=== PATIENT | female | born 1965 | race Caucasian/White ===

== ENCOUNTER 2018-08-30 09:00 | Outpatient (RCR) | payer MEDICARE, MEDICAID ==
--- NOTE | 2018-08-27 09:58 | NUR ---
0800 Patient came into office stating that she recieved good news yesterday from her doctor that her cancer has shrunk. Pt was very smiley. Pt states she will continue following up with her doctor.
[~2018-08-30 09:00] MED LIST: ALBUTEROL SUL0.083 % IN; ATIVAN0.5 MG PO; GABAPENTIN100 MG PO; GEODON60 MG PO; MULTIVITAMI9 PO; PROCHLORPER PO; PROZAC40 MG PO; REMERON15 MG PO; WELLBUTRIN SR150 MG PO
--- NOTE | 2018-09-10 11:02 | NUR ---
09/06/18 Patient's chart in for review by Treatment team. Pt has been compliant throughout her treatment in IOP. Pt has exceded benefit in insurance. Pt has been meeting her goals. Pt will be discharged today with goals met.
== END 2018-09-19 23:59 | disposition home or self-care (01) ==
LOC: PATHWAYS 09:00
PROVIDERS: ATTEND Specialist
DX: F25.8 Other schizoaffective disorders (principal); F31.89 Other bipolar disorder; F41.1 Generalized anxiety disorder; F43.21 Adjustment disorder with depressed mood